=== PATIENT | female | born 1955 | race Caucasian/White ===

== ENCOUNTER → 2017-05-28 | Outpatient (CLI) | payer OTHER ==
[2017-05-28 10:01] LABS: BASO ABS # 0.04 K/uL (0-0.2); COMPLETE YES; EOS % 3.6 %; HEMATOCRIT 41.6 % (37-47); LYMPH % 29.6 %; LYMPH ABS # 1.14 K/uL (1.2-3.4); MEAN CELL VOLUME 92.7 fL (80-100); MEAN CORPUSCULAR HEMOGLOBIN 31.2 pg (25-34); MEAN CORPUSCULAR HGB CONC 33.7 g/dl (32-36); MEAN PLATELET VOLUME 9.3 fL (7.4-10.4); MONO % 11.7 %; NEUT % 54.1 %; PLATELET COUNT 229 K/uL (130-400); RED BLOOD COUNT 4.49 M/uL (4.2-5.4); WHITE BLOOD COUNT 3.85 K/uL (4.8-10.8)
[2017-05-28 10:32] LABS: ALT/SGPT 26 U/L (12-78); AST/SGOT 21 U/L (15-37); BLOOD UREA NITROGEN 14 mg/dl (7-18); CALCIUM 8.7 mg/dl (8.5-10.1); CARBON DIOXIDE 31 mmol/L (21-32); CHLORIDE 104 mmol/L (98-107); CREATININE 0.63 mg/dl (0.60-1.20); GLUCOSE 92 mg/dl (70-99); POTASSIUM 3.8 mmol/L (3.5-5.1); SODIUM 138 mmol/L (136-145)
[2017-05-28 10:43] LABS: ALB/GLOB RATIO 1.2 (0.9-2); ALKALINE PHOSPHATASE 85 U/L (45-117); CHOLESTEROL 170 mg/dl (0-200); CHOLESTEROL/HDL RATIO 2.1; HDL CHOLESTEROL 82 mg/dl; LDL CHOLESTEROL CALCULATED 76 mg/dl; TRIGLYCERIDES 62 mg/dl (0-150); VERY LOW DENSITY LIPOPROT CALC 12 mg/dl
== END | disposition home or self-care (01) ==
LOC: C.LAB1850 09:13
PROVIDERS: ATTEND Internal Medicine
DX: Z00.00 Encounter for general adult medical examination without abnormal findings (principal); E78.5 Hyperlipidemia, unspecified; D72.819 Decreased white blood cell count, unspecified; K62.5 Hemorrhage of anus and rectum

== ENCOUNTER → 2017-06-26 | Outpatient (CLI) | payer OTHER | END | disposition home or self-care (01) | LOC: C.LAB1850 08:06 | PROVIDERS: ATTEND Physician Assistant | DX: R19.7 Diarrhea, unspecified (principal) ==

== ENCOUNTER → 2017-07-04 | Outpatient (CLI) | payer OTHER ==
--- NOTE | 2017-07-04 15:40 | MAMMOGRAPHY REPORT ---
BILATERAL DIGITAL SCREENING MAMMOGRAM TOMOSYNTHESIS WITH CAD: 07/04/2017 CLINICAL HISTORY: Routine screening. Patient has no complaints. TECHNIQUE: Breast tomosynthesis in addition to standard 2D mammography was performed. Current study was also evaluated with a Computer Aided Detection (CAD) system. COMPARISON: Comparison is made to exams dated: 04/07/2015 mammogram, 03/02/2014 mammogram, 03/02/2014 mammogram, and 02/25/2013 mammogram. BREAST COMPOSITION: The tissue of both breasts is heterogeneously dense, which may obscure small mas ses. FINDINGS: Linear scar markers overlie each breast. There are a few punctate benign-appearing microca lcifications. No new suspicious mass, architectural distortion or cluster of suspicious microcalcifi cations is seen. IMPRESSION: ACR BI-RADS CATEGORY 1: NEGATIVE There is no mammographic evidence of malignancy. A 1 year screening mammogram is recommended. The pa tient will receive written notification of the results. Approximately 10% of breast cancers are not detected with mammography. A negative mammographic report should not delay biopsy if a clinically suggestive mass is present. Joyce Johnson M.D. ay/:07/04/2017 11:06:53 Grinder Dresser: Corrina RODRÍGUEZ)(Cathy), [facility] letter sent: Normal 1/2 BI-RADS Code: ACR BI-RADS Category 1: Negative
--- NOTE | 2017-07-04 15:41 | MAMMOGRAPHY REPORT ---
ULTRASOUND OF BOTH BREASTS: 07/04/2017 CLINICAL HISTORY: Whole breast ultrasound screening for dense breasts. No family history of breast c ancer. Personal history of prior bilateral surgical excisional biopsies. COMPARISON: Comparison is made to exams dated: 02/25/2013 mammogram, 03/02/2014 mammogram, 03/02/2014 m ammogram, 04/07/2015 mammogram, and 07/04/2017 mammogram - [facility]. TECHNIQUE: Real-time high-resolution sonographic evaluation was performed throughout each breast inc luding both axillae. The breast parenchymal echotexture is heterogeneousdense. FINDINGS: There is an oval parallel hypoechoic to anechoic circumscribed mass in the 2:00 left breas t, 7 cm from the nipple, with faint posterior acoustic enhancement appreciated. This mass measures a pproximately 3.6 x 2.4 x 3.6 mm and is decreased in size comparing to prior outside ultrasounds, part icularly the 04/10/2016 ultrasound at which time it measured 5.6 x 2.8 x 5.6 mm. The interval decrea se in size confirms benignity, and no further follow-up is needed at this time. No other discrete so lid or cystic mass is seen throughout the remainder of the visualized left breast including the retro areolar breast. No discrete solid or cystic mass is identified throughout the right breast on whole breast screening ultrasound. IMPRESSION: ACR BI-RADS CATEGORY 2: BENIGN There is no sonographic evidence of malignancy in the breasts on whole breast screening ultrasound. Annual tomosynthesis mammography is recommended in one year and can consider continuing whole breast screening ultrasound, given the personal history of dense breasts. These results and recommendations were discussed with the patient at the time of the exam. Joyce Johnson M.D. ay/:07/04/2017 12:07:25 Machine Stone Polisher: Dr. Joyce Johnson, [facility] letter sent: Normal 1/2 BI-RADS Code: ACR BI-RADS Category 2: Benign
== END | disposition home or self-care (01) ==
LOC: C.MAMM 10:40
PROVIDERS: ATTEND Internal Medicine
DX: Z12.31 Encounter for screening mammogram for malignant neoplasm of breast (principal)

== ENCOUNTER → 2017-09-27 | Outpatient (CLI) | payer OTHER | END | disposition home or self-care (01) | LOC: C.PAPS 16:32 | PROVIDERS: ATTEND Obstetrics & Gynecology | DX: Z12.4 Encounter for screening for malignant neoplasm of cervix (principal) ==